=== PATIENT | male | born 1975 | race Caucasian/White ===

== ENCOUNTER 2016-02-29 05:53 | Day surgery (SDC) | payer OTHER ==
[~2016-02-29] VITALS: Ht 182.9 cm; Wt 86.7 kg
[2016-02-29] VITALS (12 sets, daily range): BP systolic 104–123; BP diastolic 51–80; PULSE 65–83; RESP 11–20; O2SAT 97–100
[2016-02-29] MEDS ORDERED: Ondansetron 2 mg/mL 2 mL Inj ONE (05:54)
[2016-02-29] MEDS ORDERED: fentaNYL-PF 50 mCg/mL 2 mL Inj ONE (05:54)
[2016-02-29] MEDS ORDERED: Propofol 10,000 mCg/mL 20 mL Inj ONE (05:54)
[2016-02-29] MEDS ORDERED: Lidocaine PF 1% 30 mL Inj ONE (05:54)
[2016-02-29] MEDS: Lactated Ringer's 1,000 ML IV SCH ×2 (05:56→07:58)
[2016-02-29] MEDS ORDERED: IBUP200C PO (06:39)
[2016-02-29] MEDS ORDERED: PHEN-617 PO (06:39)
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
[2016-02-29] MEDS ORDERED: Lactated Ringer's 1,000 ML IV SCH (07:02)
[2016-02-29] MEDS ORDERED: Lactated Ringer's 500 ML IV PRN (07:02)
[2016-02-29] MEDS ORDERED: EPHEDrine Sulfate 50 mg/mL Inj IVPUSH PRN (07:05)
[2016-02-29] MEDS ORDERED: Atropine 0.4 mg/mL Inj IVPUSH PRN (07:05)
[2016-02-29] MEDS ORDERED: Dexamethasone 4 mg/mL Inj IVPUSH PRN (07:05)
[2016-02-29] MEDS ORDERED: Ondansetron 2 mg/mL 2 mL Inj IVPUSH PRN (07:05)
[2016-02-29] MEDS ORDERED: hydrALAZINE 20 mg/mL Inj IVPUSH PRN (07:05)
[2016-02-29] MEDS ORDERED: Labetalol 5 mg/mL 4 mL Inj IV PRN (07:05)
[2016-02-29] MEDS ORDERED: Phenylephrine 10,000 mCg/mL Inj IVPUSH PRN (07:05)
[2016-02-29] MEDS ORDERED: MetoCLOpramide 5 mg/mL 2 mL Inj IVPUSH PRN (07:05)
[2016-02-29] MEDS ORDERED: CeFAZolin 2 Gm/50 mL D5W Duplex Bag IV ONE (07:13)
[2016-02-29] MEDS ORDERED: CeFAZolin Inj 2 GM in IV Premix 1 EACH IV ONE (07:15)
[2016-02-29] MEDS ORDERED: Bupivacaine-MPF 0.5% 30 mL Inj INFILTRATE ONE (07:57)
--- NOTE | 2016-02-29 09:38 | PCM.ANEP1 ---
Post Anesthesia Phase 1 PACU Phase 1 Assessment Date of Service: Feb 29, 2016 Vital Signs PACU HR 91, RR 16, O2 96% RA, T 36.0, BP 119/51 Vital Signs Date Time Temp Pulse Resp B/P Pulse Ox O2 Delivery O2 Flow Rate FiO2 02/29/16 06:21 36.3 82 18 110/63 99 Room Air Anesthetic Administered: GA Level of Alertness: Awake, talking WILCOX's with Equal Strength: Yes Pain: No Nausea or Vomiting: No Oxygen Delivery: Room Air Lungs: Normal Air Movement Sarabjit Bradley MD Feb 29, 2016 09:38
[2016-02-29] MEDS ORDERED: oxyCODONE-Acetamin 5-325 mg Tablet PO PRN (09:40)
[2016-02-29] MEDS: fentaNYL-PF 50 mCg/mL 2 mL Inj IVPUSH PRN ×2 (09:45→10:13)
[2016-02-29] MEDS: HYDROmorphone 1 mg/mL Inj IVPUSH PRN ×2 (09:45→10:14)
--- NOTE | 2016-02-29 09:51 | PCM.PODPO ---
Podiatry Operative Report Date of Service: Feb 29, 2016 Date of Service Feb 29, 2016 Pre Operative Diagnosis 1. 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 Osteochondral defect right lateral talus 3. Posttraumatic arthritis right ankle 4. Loose bodies right ankle Post Operative Diagnosis Same as preoperative diagnoses Procedure 1. Open repair of distal tibial synovial bone cyst with use of crushed cancellous bone graft 2. Repair of osteochondral defect with microfracture drilling right talus 3. Arthroplasty of the right anterior tibial lip 4. Excision of loose bodies right ankle Surgeon Surgeon: Brannon Recinos DPM Assistants: None Indication for Procedure Painful right ankle cystic lesion and osteochondral defect with loose bodies and posttraumatic arthritis Findings Large encapsulated loose bodies of the anterior tibia and talus. Moderate degeneration of the anterior lateral articular surface of the talus and tibia. Large subchondral synovial cyst of the tibia without extension to the ankle joint Details of Procedure The patient was identified in the preoperative holding area operative record diabetes mellitus were identified and thoroughly discussed. The patient was transported into the operating room and placed on the operating room table in the normal supine position. The patient was then prepped and draped in the normal aseptic technique. The patient was given a preoperative block consisting of 20 mL of a 11 mixture of half percent Marcaine plain and 1% lidocaine with epinephrine. Attention was first paid to the anterior lateral aspect of the right ankle. A curvilinear incision was made directly overlying his previous right anterior lateral ankle incision utilizing a #10 blade. Once the initial skin all SUBCUTANEOUS neurovascular structures were identified and retracted out of the surgical field. Blunt dissection was carried down utilizing a Metzenbaum scissor to identify the extensor retinaculum which was atraumatically incised and reflected both medially and laterally exposing deep structures including the extensor digitorum longus muscle belly and musculotendinous junction. Blunt dissection was carried through this area and all tendinous structures were retracted both medially and laterally exposing deep tissue. Lateral neurovascular structures were identified and retracted laterally. This capsular tissue was identified and a fresh #15 blade was used to incise through capsular tissue exposing the distal aspect of the lateral tibia and the lateral gutter of the ankle joint as well as the anterior lateral surface of the talus. A dupree periosteal elevator was then utilized to elevate periosteum of the entirety of the anterior surface of the tibia at the level of the ankle joint extending proximally approximately 5 cm. Inspection of the anterior tibiotalar joint revealed a large encapsulated loose body which was removed atraumatically with a rongeur. A rongeur was utilized to debride the anterior tibial lip and remove a significant amount of osteoarthritic change and spurring. inspection of the lateral aspect of the talar dome revealed an additional loose body which noted to be encapsulated and which was removed atraumatically with a rongeur. An osteotome was utilized to bevel the anterior surface of the distal tibial lip taking care to remove any prominent portions of bone protruding inferiorly or anteriorly. Care was taken to avoid damage to underlying talus articular surface and tibial articular surface. A rasp was then utilized to smooth the anterior portion of the distal tibia.. Inspection of the lateral aspect of that anterior talar dome revealed a 1 cm x 1 cm area of osteochondral defect with loose and overlying fibrocartilage. A curet was utilized to remove all of this fibrocartilage down to subchondral bone. A threaded K wire was then utilized to perform subchondral drilling and healthy bleeding bone was noted at the osteochondral defect site. Inspection of the remaining talar surface revealed multiple small patches of fibrocartilage which were well adhered. Inspection of the distal aspect of the tibia revealed multiple small areas of fibrocartilage without loosening. Intraoperative C-arm guidance was utilized to identify an area of the anterior lateral tibial directly overlying the subchondral cyst. A threaded K wire was inserted into this area utilizing intraoperative C-arm guidance. A sagittal saw was then utilized to make a 1.2 x 1.0 cm cortical window which was slightly beveled toward the central portion of the cortical window. An osteotome was utilized to finish this cut and the cortical window was removed and placed in lactated Ringer's on the back table. Inspection of the underlying synovial cyst revealed a large amount of synovium which was then flushed copiously with lactated Ringer's. A large curette was then utilized to curette the edges of the synovial cyst. Inspection of the synovial cyst revealed no extension through the subchondral plate into the ankle joint. A threaded K wire was then used to perform subchondral drilling through the whitfield of the synovial cyst ensuring that healthy bleeding tissue was identified. Crushed cancellous bone was then utilized to pack the synovial cyst and the cortical window was replaced in the normal surgical fashion. A 3.5 mm partially-threaded screw was then utilized to fixate the cortical window back into its normal position in the distal lateral tibia. This wound was not grossly flushed with large amounts of normal saline. Deep closure was performed utilizing number 3. 0 Vicryl. The extensor retinaculum layer was closed utilizing number 3. 0 Vicryl subcutaneous closure was performed utilizing number 3. 0 Vicryl and skin closure was performed utilizing number 3. 0 Prolene. No complications occurred during this procedure. 10 mL of half percent Marcaine plain was given postoperatively. The patient was dressed utilizing Adaptic sterile 4 x 4 gauze Kerlix and a mildly compressive Jeter compression dressing. The patient was awoken by anesthesia and transported to the operating room with neurovascular status intact. Grafts, Implants: Grafts-See Implant Record, Implants-See Implant Record Complications There were no periprocedural complications identified. Condition Stable Anesthetic Administered: GA Catheters: None Output, Estimated Blood Loss: 30 Blood Admin during surgery: No Surgical Cast or Splint: Well-padded Short Leg Splint Surgical Specimen Removed: No Specimen sent to Pathology: No Post Operative Plan Ice and elevate right lower extremity Nonweightbearing right lower extremity Advance diet as tolerated Discharged home when stable Contact office with any questions or concerns regarding care Keep dressing clean dry and intact Follow-up in office in 1 week Brannon Recinos DPM Feb 29, 2016 09:51
--- NOTE | 2016-02-29 10:10 | PCM.ANEP2 ---
Post Anesthesia Evaluation ASA/CMS Post Anesthesia Date of Service: Feb 29, 2016 VS in Patient's Normal Range?: Yes Resp Stable; Airway Patent?: Yes CV Function & Hydration Stable: Yes Mental Status Recovered?: Yes Pain control Satisfactory?: Yes N/V Control Satisfactory?: Yes Sarabjit Bradley MD Feb 29, 2016 10:10
== END 2016-02-29 12:19 | disposition home or self-care (01) ==
LOC: SAS 05:53
PROVIDERS: ATTEND Podiatrist Foot & Ankle Surgery
DX: M85.661 Other cyst of bone, right lower leg (principal); M21.6X1 Other acquired deformities of right foot; M24.071 Loose body in right ankle; M19.171 Post-traumatic osteoarthritis, right ankle and foot
CPT/HCPCS: 27620; 27638; 76000; 76001; J0690; J1170; J2250; J2270; J2405; J7120